=== PATIENT | female | born 2000 | race Two or more races ===

== ENCOUNTER 2024-09-14 15:48 | Emergency (ER) | payer OTHER ==
[~2024-09-14] VITALS: Ht 162.6 cm; Wt 53.1 kg
[2024-09-14] MEDS ORDERED: CRYSELLE-28 TA1 EACH PO (16:40)
== END 2024-09-14 17:37 | disposition home or self-care (01) ==
LOC: ER 15:50
DX: R21 Rash and other nonspecific skin eruption (principal)